=== PATIENT | male | born 1965 | race Caucasian/White ===

== ENCOUNTER 2017-04-19 08:15 | Inpatient (IN) | payer BC ==
[~2017-04-19] VITALS: Ht 177.8 cm; Wt 98.1 kg
--- NOTE | 2017-04-19 09:07 | NUR ---
Right Arm BP: 144/101 (119) Left Arm BP: 153/92 (117)
--- NOTE | 2017-04-19 09:34 | NUR ---
PT PRESENTS TO THE ED WITH THE COMPLAINT OF DRY MOUTH AND POLYURIA X 1.5 WEEKS. PT STATES THAT HE CAME INTO THE ED TODAY BECAUSE HE WOKE UP THIS AM WITH SLIGHT LIGHT HEADEDNESS.
--- NOTE | 2017-04-19 09:35 | NUR ---
PT IS HOOKED UP TO THE FULL CARDIORESP MONITORS AND IS IN DIRECT OBSERVATION OF THE NURSES STATION.
[2017-04-19 09:57] LABS: microscopic required? NO
[2017-04-19 10:21] LABS: BASOPHIL % 0.2 % (0-2); PLATELET COUNT 269 x10^3mcL (130-400); RED CELL DISTRIBUTION WIDTH 12.6 % (11.5-14.5)
[2017-04-19 10:24] LABS: CALCIUM 10.1 mg/dL (8.5-10.1); CARBON DIOXIDE 25.9 mmol/L (21-32); CHLORIDE SERUM 102 mmol/L (98-107); CREATININE SERUM 1.3 mg/dL (0.7-1.3); GFR1 > 60 mL/min; GLUCOSE SERUM 425 mg/dL (74-106); POTASSIUM SERUM 3.9 mmol/L (3.5-5.1); SODIUM SERUM 142 mmol/L (136-145)
[2017-04-19 10:27] LABS: UA SPECIFIC GRAVITY 1.015 (1.005-1.035); urine erythrocyte NEGATIVE (NEGATIVE)
[2017-04-19 10:28] LABS: ALBUMIN 4.2 g/dL (3.4-5.0); ALKALINE PHOSPHATASE 131 U/L (46-116); ALT/SGPT 126 U/L (16-63); AST/SGOT 46 U/L (15-37); BILIRUBIN TOTAL 1.12 mg/dL (0.20-1.00); HDL CHOLESTEROL 37 mg/dL (40-60); LIPASE 339 IU/L (73-393)
[2017-04-19 10:29] LABS: CHOLESTEROL 293 mg/dL (<200); CHOLESTEROL/HDL RATIO 7.9; TOTAL PROTEIN, SERUM 8.6 g/dL (6.4-8.2); TRIGLYCERIDES 371 mg/dL (<150)
[2017-04-19 10:36] LABS: T3 TOTAL 0.95 ng/mL
[2017-04-19 11:13] LABS: FREE T4 1.31 ng/dL (0.76-1.46); FREE THYROXINE INDEX 3.7 ug/dL (1.4-4.5); T4(THYROXINE) 10.6 ug/dL (4.7-13.3)
--- NOTE | 2017-04-19 12:02 | NUR ---
REPORT CALLED TO [facility] TO ASSUME CARE FOR THIS PT POST TRANSFER FROM ED TO TELE UNIT.
--- NOTE | 2017-04-19 12:18 | NUR ---
RECEIVED PATIENT FROM ER. ALERT/ORIENTED X4. TELE#57 APPLIED. SR; HR = 85. BREATHING SOUND CLEAR MAGDI. C/O THIRSTY. DENIED PAIN. IVF OF NS 100CC/HR PER ORDER. CALL LIGHT IN REACH.
[2017-04-19 12:22] VITALS: BP 129/74
[2017-04-19 14:01] LABS: MAGNESIUM 2.3 mg/dL (1.8-2.4); PHOSPHOROUS 4.3 mg/dL (2.5-4.9)
[2017-04-19 14:02] VITALS: BP 124/74
[2017-04-19 17:31] VITALS: BP 134/76
--- NOTE | 2017-04-19 18:56 | NUR ---
CONDITION STABLE. TOLERATED DINNER. VOID X2 VIA BRP. IVF OF NS 150CC/HR INFUSING WELL TO L HAND. ENDORSED CARE TO NOC NURSE.
--- NOTE | 2017-04-19 19:25 | NUR ---
PATIENT RECEIVED AWAKE, ALERT, AND ORIENTED X 4. NO DISTRESS NOTED. PATIENT DENIES PAIN. IV SITE TO LEFT HAND, PATENT AND INTACT. IV FLUID INFUSING PER DOCTOR'S ORDER. BED IN LOWEST POSITION. CALL LIGHT WITHIN REACH. WILL CONTINUE TO MONITOR.
[2017-04-19 21:37] VITALS: BP 135/79
[2017-04-20 04:31] LABS: AMPHETAMINE QUAL UR NONE DETECTED (NEG <=1000)
--- NOTE | 2017-04-20 05:03 | NUR ---
PATIENT RESTED THROUGHOUT THE NIGHT. NO DISTRESS NOTED. NO C/O PAIN/DISCOMFORT. ALL NEEDS MET. SAFETY AND COMFORT MEASURES MAINTAINED. BED IN LOWEST POSITION. CALL LIGHT WITHIN REACH. WILL CONTINUE TO MONITOR AND ENDORSE TO NEXT SHIFT NURSE.
[2017-04-20 05:51] VITALS: BP 136/84
[2017-04-20 06:27] LABS: BASOPHIL % 0.4 % (0-2); PLATELET COUNT 249 x10^3mcL (130-400); RED CELL DISTRIBUTION WIDTH 12.9 % (11.5-14.5)
[2017-04-20 06:30] LABS: ALKALINE PHOSPHATASE 89 U/L (46-116); ALT/SGPT 99 U/L (16-63); AST/SGOT 55 U/L (15-37); BILIRUBIN TOTAL 1.19 mg/dL (0.20-1.00); CALCIUM 8.3 mg/dL (8.5-10.1); CHLORIDE SERUM 105 mmol/L (98-107); GFR1 > 60 mL/min; GLUCOSE SERUM 182 mg/dL (74-106); MAGNESIUM 1.8 mg/dL (1.8-2.4); PHOSPHOROUS 2.2 mg/dL (2.5-4.9); POTASSIUM SERUM 3.2 mmol/L (3.5-5.1); SODIUM SERUM 141 mmol/L (136-145); TOTAL PROTEIN, SERUM 6.7 g/dL (6.4-8.2)
[2017-04-20 06:31] LABS: ALBUMIN 3.3 g/dL (3.4-5.0)
--- NOTE | 2017-04-20 08:00 | NUR ---
A/A//OX4. NO RESP DISTRESS. DENIED CHEST PAIN. FINISHED [facility] [place] DIET BREAKFAST 95%, TOLERATED WELL. AMBULATED IN HALLWAY WITH STEADY GAIT. VOID FREELY. IVF OF NS INFUSING WELL. IV SITE TO L HAND INTACT. CALL LIGHT IN REACH.
--- NOTE | 2017-04-20 08:30 | NUR ---
DR. ENGLISH AND MEDICAL TEAM MADE MORNING ROUND. PLAN OF CARE DISCUSSED WITH PATIENT, INCLUDED WITH POSSIBLE DISCHARGE. PATIENT AGREED WITH PLAN OF CARE.
--- NOTE | 2017-04-20 08:40 | NUR ---
REPORTED TO DR. ZHU WITH PATIENT'S POTASSIUM LEVEL = 3.2 AND PHOSPHATE =2.2. NEW ORDER TO DECREASE IVF OF NS FROM 150CC/HR TO 10CC/HR CARRIED OUT.
[2017-04-20 09:04] VITALS: BP 124/72
[2017-04-20] MEDS ORDERED: LIPI10 PO (10:42)
[2017-04-20] MEDS ORDERED: ZES10 PO (10:43)
[2017-04-20] MEDS ORDERED: GLU5 PO (10:44)
[2017-04-20] MEDS ORDERED: METFORMIN HCL1000 MG PO (10:44)
[2017-04-20 10:49] VITALS: BP 115/77; BP 124/72
[2017-04-20] MEDS ORDERED: KLOR-CON M2020 MEQ PO (13:44)
--- NOTE | 2017-04-20 14:56 | NUR ---
Initial Nutrition Assessment Dx: New Onset DM PMHx: HTN, HLD PSHx: Vasectomy Labs: K 3.2 L, BG 425 -> 182 H, BUN 14, Cr 1, ALB 3.3 L, Phosphorous 2.2 L, TBili 1.19 H, AST 55 H, ALT 99 H; (04/19) Triglycerides 371 H, Cholesterol 293 H, LDL 176 H, A1C 9.9 H Meds: Colace, D50, Glucophage, Glucotrol, humulin R, neutra-phos, NS IV, zofran Current Diet Order: CCHO-60 gm PO Intakes: None recorded yet Ht: 70", 5' 10". Wt: 216 lb, 98 kg. BMI: 31 kg/m2 (Obesity Class I) IBW: 166 lb, 75 kg. %IBW: 131%. Adj BW: 179 lb, 81 kg. UBW: 190 lb, 86 kg (about a year ago per pt). Age: 52 Y/O M Food Allergies: None Skin: Intact. Maurice 22. Edema: None GI: Last BM 04/19. Pt found with DMOOC with HCS, new onset, A1C 9.9% per doctor's notes. Pt was seen resting in bed during RD visit, reported just had lunch and tolerating diet with good PO intakes. Pt also stated that he has always wanted to see a dietitian to do meal planning but never got to do it. Problem with: N: None. V: None. D: None. C: None. Problems with: Chewing: None. Swallowing: None. Current Appetite: Good Recent Weight Change: -10 lb per pt in the past year; However, noted in chart review, +26 lb. % Weight Change: 13.7% weight gain per chart review Vitamin/Supplement use: None Diet at Home: Regular, [place] Food; Likes to drink a lot of lemonade, sweetened ice tea, juices, likes to eat corn, tortillas, take-outs, dislikes sodas due to carbonation Physical Activity: Some walks Education: RD provided DM nutrition education to pt, discussed portion control, food/snack options, carb counting, exercise/walks after meals, and handouts provided to pt. DM Class flyer provided to pt as well, encouraged to attend. Pt very receptive, stated that he does want to change his dietary lifestyle habits as he lost his parents to diabetes. Expected good compliance to diet. Estimated Nutritional Needs Based IBW 166 lb, 75 kg. Energy: 6488-6508 kcal/day (25-30 kcal/kg for Maintenance) Protein: 75 gm/day (1 gm/kg for Maintenance) Fluids: 2250 ml/day (30 ml/kg for Maintenance) or per doctor Nutrition Diagnosis 1. Altered nutrition related labs related to endocrine dysfunction, new onset DM as evidenced by elevated BG 182 mg/dL, A1C 9.9% 2. Food and nutrition related knowledge deficit related to no prior nutrition knowledge as evidenced by new onset DM, provided DM education at bedside Intervention 1. Continue CCHO-60 gm diet per doctor. 2. RD provided DM nutrition education and handouts to pt. 3. Follow up with Outpatient RD, CDE for further nutrition education. Monitor/Evaluate Goal: PO intakes to meet >75% of estimated needs with tolerance; Pt to understand CCHO diet restrictions Monitor: PO intakes, tolerance to diet, labs, skin integrity, GI function F/U in 7 days as LOW risk (04/27)
[2017-04-20 15:00] VITALS: BP 115/77
--- NOTE | 2017-04-20 15:30 | NUR ---
K = 3.2; ORDER OF KCL 40 MEQ PO GIVEN.
--- NOTE | 2017-04-20 16:05 | NUR ---
D/C TO HOME PER ORDER. INSTRUCTION GIVEN. CONDITION STABLE.
== END 2017-04-20 16:20 | disposition home or self-care (01) | DRG 638 ==
LOC: ED 08:15 → DU 10:52 → MU 10:52 → DU 12:20 → MU 22:35
PROVIDERS: Specialist; ADMIT Family Medicine Sports Medicine
DX: E11.65 Type 2 diabetes mellitus with hyperglycemia (principal); D68.69 Other thrombophilia; E78.5 Hyperlipidemia, unspecified; I10 Essential (primary) hypertension; R74.0 Nonspecific elevation of levels of transaminase and lactic acid dehydrogenase [LDH]; E66.3 Overweight; Z68.31 Body mass index [BMI] 31.0-31.9, adult; Z88.8 Allergy status to other drugs, medicaments and biological substances
CPT/HCPCS: 82962; 83880; 84439; J7030; Q0092